=== PATIENT | male | born 1995 | race African-American/Black ===

== ENCOUNTER 2019-06-21 19:32 | Emergency (ER) | payer SELFPAY ==
[~2019-06-21] VITALS: Ht 188 cm; Wt 70.0 kg
[2019-06-21 20:56] VITALS: BP 134/83
== END 2019-06-21 23:07 | disposition left against medical advice (07) ==
LOC: ER 19:40
DX: Z53.21 Procedure and treatment not carried out due to patient leaving prior to being seen by health care provider (principal)